=== PATIENT | male | born 1980 | race Two or more races ===

== ENCOUNTER 2016-11-01 19:43 | Emergency (ER) | payer MEDICAID ==
[~2016-11-01] VITALS: Ht 182.9 cm; Wt 136.1 kg
[2016-11-01 20:12] VITALS: BP 153/106
[2016-11-01 20:37] LABS: Basophils # (auto) 0 uL; Basophils % (auto) 0.3 % (0.0-2.0); CONDITION Y; Eosinophils # (auto) 0.1 uL; Eosinophils % (auto) 0.6 % (0.0-7.0); Hematocrit 43.9 % (41.0-53.0); Hemoglobin 15.1 g/dL (13.5-17.5); Lymphocytes # (auto) 1.5 uL; Lymphocytes % (auto) 17.2 % (10.0-50.0); Mean Corpuscular Hemoglobin 29.7 pg (28.0-32.0); Mean Corpuscular Hgb Conc. 34.3 g/dL (32.0-36.0); Mean Corpuscular Volume 86.3 fL (80.0-100.0); Mean Platelet Volume 7.3 fL (7.4-10.4); Monocytes # (auto) 0.7 uL; Monocytes % (auto) 8.6 % (0.0-12.0); Neutrophils # (auto) 6.3 uL; Neutrophils % (auto) 73.3 % (37.0-80.0); Platelet Count (auto) 337 10^3/uL (140-450); Red Cell Distribution Width 13.9 % (11.6-16.0); White Blood Cell 8.6 10^3/uL (4.4-10.8)
[2016-11-01 21:06] LABS: Albumin 3.8 g/dL (3.4-5.0); BUN/Creatinine Ratio 11.5; Bilirubin, Total 0.4 mg/dL (0.2-1.0); Calcium 8.7 mg/dL (8.5-10.1); Potassium 3.5 mmol/L (3.5-5.1); Total Protein 8.6 g/dL (6.4-8.2)
== END 2016-11-02 02:00 | disposition left against medical advice (07) ==
LOC: ER 20:11
DX: R10.9 Unspecified abdominal pain (principal); Z53.21 Procedure and treatment not carried out due to patient leaving prior to being seen by health care provider
CPT/HCPCS: 36415; 80053; 82150; 83690; 85025

== ENCOUNTER 2016-11-11 00:12 | Emergency (ER) | payer MEDICAID ==
[~2016-11-11] VITALS: Ht 182.9 cm; Wt 136.1 kg
[2016-11-11 01:03] LABS: Basophils # (auto) 0.1 uL; Basophils % (auto) 0.7 % (0.0-2.0); CONDITION Y; Eosinophils # (auto) 0.2 uL; Eosinophils % (auto) 2.9 % (0.0-7.0); Hematocrit 42.7 % (41.0-53.0); Hemoglobin 14.4 g/dL (13.5-17.5); Lymphocytes # (auto) 2.3 uL; Lymphocytes % (auto) 28.8 % (10.0-50.0); Mean Corpuscular Hemoglobin 29.6 pg (28.0-32.0); Mean Corpuscular Hgb Conc. 33.6 g/dL (32.0-36.0); Mean Platelet Volume 7.5 fL (7.4-10.4); Monocytes # (auto) 0.9 uL; Monocytes % (auto) 11.6 % (0.0-12.0); Neutrophils # (auto) 4.4 uL; Platelet Count (auto) 347 10^3/uL (140-450); Red Cell Distribution Width 14.2 % (11.6-16.0); White Blood Cell 7.9 10^3/uL (4.4-10.8)
[2016-11-11 01:10] LABS: Acetaminophen < 2.0 ug/mL (10-30); Salicylate < 1.7 mg/dL (2.8-20.0)
[2016-11-11 01:11] LABS: Albumin 3.4 g/dL (3.4-5.0); BUN/Creatinine Ratio 12.2; Calcium 8.3 mg/dL (8.5-10.1); Potassium 3.8 mmol/L (3.5-5.1)
[2016-11-11 01:14] LABS: Bilirubin, Total 0.3 mg/dL (0.2-1.0)
[2016-11-11 01:26] LABS: B-Type Natriuretic Peptide < 5.0 pg/mL (0-100); Temperature: 22.4 C (20.0-25.0)
[2016-11-11 06:43] VITALS: BP 134/77
[2016-11-11] MEDS ORDERED: SODIUM CHLORIDE 0.9% 1,000 ML IV ONE (07:09)
== END 2016-11-11 08:31 | disposition left against medical advice (07) ==
LOC: ER 00:16
DX: R60.0 Localized edema (principal)
CPT/HCPCS: 36415; 80053; 80329; 83735; 83880; 84443; 85025; 94761

== ENCOUNTER 2022-11-09 23:00 | Emergency (ER) | payer MEDICAID ==
[~2022-11-09] VITALS: Ht 177.8 cm; Wt 155.4 kg
[2022-11-09 23:56] LABS: Basophils # (auto) 0.1 10 ^3/uL (0-0.2); Basophils % (auto) 0.8 % (0.0-2.0); Eosinophils # (auto) 0.3 10 ^3/uL (0-0.8); Eosinophils % (auto) 2.1 % (0.0-7.0); Hemoglobin 16.3 g/dL (13.5-17.5); Lymphocytes # (auto) 3.2 10 ^3/uL (0.4-5.4); Mean Corpuscular Hemoglobin 28.9 pg (28.0-32.0); Mean Corpuscular Hgb Conc. 33.4 g/dL (32.0-36.0); Mean Corpuscular Volume 86.6 fL (80.0-100.0); Monocytes # (auto) 1.5 10 ^3/uL (0-1.3); Monocytes % (auto) 11.4 % (0.0-12.0); Neutrophils # (auto) 8.3 10 ^3/uL (1.6-8.6); Neutrophils % (auto) 61.7 % (37.0-80.0); Red Blood Cells 5.66 10^6/uL (4.5-5.90); White Blood Cell 13.4 10^3/uL (4.4-10.8)
[2022-11-10 00:31] LABS: Albumin 3.7 g/dL (3.4-5.0); BUN/Creatinine Ratio 11.9 (10.0-20.0); Calcium 8.8 mg/dL (8.5-10.1); Potassium 3.4 mmol/L (3.5-5.1)
[2022-11-10 00:39] LABS: Bilirubin, Total 0.4 mg/dL (0.2-1.0)
[2022-11-10] MEDS ORDERED: IOHEXOL 350 MG/ML 100ML IJ ONE (02:18)
[2022-11-10 03:30] VITALS: PULSE 60; RESP 20; O2SAT 97
[2022-11-10] MEDS ORDERED: AZIT-43 PO (05:11)
[2022-11-10] MEDS ORDERED: PRED20TA2 PO (05:12)
[2022-11-10 05:16] VITALS: BP 146/75; PULSE 100; RESP 20; TEMP 97.6; O2SAT 93
== END 2022-11-10 05:25 | disposition home or self-care (01) ==
LOC: ER 23:04
DX: J40 Bronchitis, not specified as acute or chronic (principal); R07.89 Other chest pain
CPT/HCPCS: 36415; 71045; 80053; 84484; 85025; 93005

== ENCOUNTER 2023-12-26 23:23 | Emergency (ER) | payer MEDICAID ==
[~2023-12-26] VITALS: Ht 175.3 cm; Wt 147.0 kg
[~2023-12-26 23:23] MED LIST: AZIT-43 PO; PRED20TA2 PO
[2023-12-27 02:05] VITALS: BP 122/85; PULSE 100; RESP 16; TEMP 97.9; O2SAT 96
== END 2023-12-27 02:15 | disposition home or self-care (01) ==
LOC: ER 23:23
DX: K52.9 Noninfective gastroenteritis and colitis, unspecified (principal); F12.10 Cannabis abuse, uncomplicated